=== PATIENT | male | born 1965 | race African-American/Black ===

== ENCOUNTER 2016-11-26 23:12 | Emergency (ER) | payer MEDICAID, OTHER ==
[~2016-11-26] VITALS: Ht 177.8 cm; Wt 102.1 kg
[2016-11-26] MEDS ORDERED: NKM (23:26)
[2016-11-26] MEDS ORDERED: Lidocaine 2% Visc 15ml soln ORAL ONE (23:45)
[2016-11-26] MEDS ORDERED: Mylanta II UD 30ml ORAL ONE (23:45)
--- NOTE | 2016-11-26 23:45 | Emergency Room Report ---
History of Present Illness General Chief Complaint: Nausea Source: Patient Present Illness HPI The patient ate some grass yogurt on Sunday. he and his started feeling nausea epigastric and chest pain is burning. He also feels aches his body. He denies any fevers. There is no change in the bowels at this time. No dysuria, [place]. Some muscle aching. No dizziness. Allergies: Coded Allergies: No Known Allergies (Unverified , 11/26/16) Patient History Past Medical History: see triage record Social History: Denies: alcohol use, drug use, smoking Social History Narrative Reviewed Nursing Documentation: PMH: Agreed, PSxH: Agreed Nursing Documentation-PMH Past Medical History: No Stated History Review of Systems All Other Systems: negative except mentioned in HPI Physical Exam Vital Signs Date Time Temp Pulse Resp B/P Pulse Ox O2 Delivery O2 Flow Rate FiO2 11/26/16 23:20 98.2 63 16 140/89 96 Room Air Sp02 EP Interpretation: reviewed, normal General Appearance: well appearing, no apparent distress Head: normocephalic, atraumatic Eyes: bilateral eye PERRL, bilateral eye normal inspection ENT: hearing grossly normal, normal voice, moist mucus membranes Neck: full range of motion, supple Respiratory: no respiratory distress, speaking full sentences Gastrointestinal: normal inspection, soft, no mass, no guarding, no rebound, tenderness - epigastric Musculoskeletal: digits/nails normal, gait/station normal, normal range of motion Neurologic: alert, normal gait, grossly normal Psychiatric: mood/affect normal Skin: no rash Medical Decision Making Diagnostic Impression: Primary Impression: Nausea and vomiting in adult patient Additional Impression: Epigastric pain ER Course Patient with epigastric pain, NV post unusual ingestion. Ddx: gastritis, gastroenteritis, food poisoning, viral syndrome, pancreatitis, gall bladder problems amongst others. Clinically, not toxic and NAD. Will treat symptomatically. If not improved, consider labs and IV. Patient refused tylenol and ranitidine. Pain resolved. Patient stable for outpatient observation and treatment. Last Vital Signs Date Time Temp Pulse Resp B/P Pulse Ox O2 Delivery O2 Flow Rate FiO2 11/27/16 00:49 98.2 72 16 134/87 98 Room Air Status: improved Disposition: HOME, SELF-CARE Condition: Improved Scripts Mag Hydrox/Al Hydrox/Simeth (MAALOX MAXIMUM STRENGTH SUSP) 355 Ml Oral.susp 30 ML PO Q6HR Y for stomach pain, #240 ML Prov: Douglas Turner M.D. 11/27/16 Lidocaine HCl (Lidocaine HCl Viscous) 100 Ml Solution 10 ML MM Q6HR, #60 MG Prov: Douglas Turner M.D. 11/27/16 Ondansetron Odt* (ZOFRAN ODT*) 4 Mg Tab.rapdis 4 MG ORAL Q6H Y for Nausea & Vomiting, #6 TAB 0 Refills Prov: Douglas Turner M.D. 11/27/16 Famotidine (PEPCID) 20 Mg Tablet 20 MG ORAL DAILY, #30 TAB 0 Refills Prov: Douglas Turner M.D. 11/27/16 Douglas Turner M.D. November 26, 2016 23:45
[2016-11-27] MEDS ORDERED: PEPCID20 MG ORAL (00:27)
[2016-11-27] MEDS ORDERED: LIDOCAINE20 MG/1 M1 MM (00:27)
[2016-11-27] MEDS ORDERED: ZOFRAN ODT4 MG ORAL (00:27)
[2016-11-27] MEDS ORDERED: MAALOX MAXIMUM355 M1 PO (00:27)
[2016-11-27 00:48] VITALS: BP 134/87
[2016-11-27 00:49] VITALS: BP 134/87
== END 2016-11-27 00:49 | disposition home or self-care (01) ==
LOC: EMR 23:40
DX: R11.2 Nausea with vomiting, unspecified (principal); R10.13 Epigastric pain; M79.1 Myalgia
CPT/HCPCS: 99284

== ENCOUNTER 2017-06-01 00:49 | Emergency (ER) | payer MEDICAID, OTHER ==
[~2017-06-01] VITALS: Ht 177.8 cm; Wt 99.8 kg
[~2017-06-01 00:49] MED LIST: LIDOCAINE20 MG/1 M1 MM; MAALOX MAXIMUM355 M1 PO; NKM; PEPCID20 MG ORAL; ZOFRAN ODT4 MG ORAL
[2017-06-01 01:20] VITALS: BP 141/78
[2017-06-01] MEDS ORDERED: Ketorolac 30mg Inj IV ONE (01:30)
[2017-06-01] MEDS ORDERED: Aspirin Baby 81mg ORAL ONE (01:30)
--- NOTE | 2017-06-01 01:44 | Emergency Room Report ---
History of Present Illness General Chief Complaint: Chest Pain Source: Patient Present Illness HPI This 51-year-old male with no past medical history. He presents to complaint of chest pain. His been ongoing constant for last 2 days. The left side. Sharp in nature. [place] pinching. No radiation. No nausea no vomiting. No diarrhea. He had similar symptom in the past and had a stress test about 7 months ago it was negative. Denies any other complaint. Complaining of pain a 01/29 Allergies: Coded Allergies: No Known Allergies (Unverified , 11/26/16) Patient History Past Medical History: see triage record, old chart reviewed Past Surgical History: none Pertinent Family History: none Social History: Denies: smoking Immunizations: other Reviewed Nursing Documentation: PMH: Agreed, PSxH: Agreed Nursing Documentation-PMH Past Medical History: No Stated History Review of Systems Eye: Denies: eye pain, blurred vision ENT: Denies: ear pain, nose congestion, throat swelling Respiratory: Denies: cough, shortness of breath Cardiovascular: Reports: chest pain, Denies: palpitations Gastrointestinal: Denies: abdominal pain, diarrhea, nausea, vomiting Musculoskeletal: Denies: back pain, joint pain Skin: Denies: rash Neurological: Denies: headache, numbness Endocrine: Denies: increased thirst, increased urine Hematologic/Lymphatic: Denies: easy bruising All Other Systems: negative except mentioned in HPI Physical Exam Vital Signs Date Time Temp Pulse Resp B/P (MAP) Pulse Ox O2 Delivery O2 Flow Rate FiO2 06/01/17 01:01 98.1 67 14 145/89 98 Room Air vitals normal Sp02 EP Interpretation: reviewed, normal General Appearance: well appearing, no apparent distress, alert Head: normocephalic, atraumatic Eyes: bilateral eye PERRL, bilateral eye EOMI ENT: hearing grossly normal, normal pharynx Neck: full range of motion, supple, no meningismus Respiratory: chest non-tender, lungs clear, normal breath sounds Cardiovascular #1: regular rate, rhythm, no murmur Gastrointestinal: normal bowel sounds, non tender, no mass, no organomegaly, no bruit, non-distended Musculoskeletal: back normal, gait/station normal, normal range of motion Psychiatric: mood/affect normal Skin: warm/dry Medical Decision Making Diagnostic Impression: Primary Impression: Chest pain Qualified Codes: R07.9 - Chest pain, unspecified ER Course Patient present with chest pain. No evidence of ACS, PE, dissection to name a few. EKG is normal. Troponin negative after 36-48 hours and pain. patient also had a recent stress test way walk a treadmill. He said this was done about 6-7 months ago. Patient said last she had a CT scan and it showed he has a 1 cm pulmonary nodule. I see no need for repeat CT scan at this moment in time. This can be done as an outpatient. I see no evidence of PE in this patient. Lab Results Impression labs normal EKG Diagnostic Results Rate: normal Rhythm: NSR ST Segments: no acute changes ASA given to the pt in ED: Yes - Offered but patient refused Rhythm Strip Diag. Results Rhythm Strip Time: 01:43 EP Interpretation: yes Rate: 65 Rhythm: NSR, no PVC's, no ectopy Chest X-Ray Diagnostic Results Chest X-Ray Diagnostic Results : Chest X-Ray Ordered: Yes # of Views/Limited/Complete: 1 View Indication: Chest Pain EP Interpretation: Yes Interpretation: no consolidation, no effusion, no pneumothorax, no acute cardiopulmonary disease Impression: No acute disease Electronically Signed by: Electronically signed by Durga Ozuna MD Last Vital Signs Date Time Temp Pulse Resp B/P (MAP) Pulse Ox O2 Delivery O2 Flow Rate FiO2 06/01/17 01:01 98.1 67 14 145/89 98 Room Air Status: improved Disposition: HOME, SELF-CARE Condition: Stable Scripts Ibuprofen* (MOTRIN*) 600 Mg Tablet 600 MG ORAL THREE TIMES A DAY, #30 TAB 0 Refills Prov: DURGA OZUNA M.D. 06/01/17 Patient Instructions: Nonspecific Chest Pain Additional Instructions: Followup with your DrNando in 7 days. You may benefit from a referral to see a material handling supervisor. Return if symptom worsen. your pulmonary nodule can be worked up as an outpatient. DURGA OZUNA M.D. Jun 01, 2017 01:44
[2017-06-01 02:08] LABS: BASOPHILS % (AUTO) 1.6 % (0.0-2.0); EOSINOPHILS % (AUTO) 3.4 % (0.0-3.0); HEMATOCRIT 44.6 % (42.0-52.0); HEMOGLOBIN 14.2 G/DL (14.2-18.0); MEAN CORPUSCULAR VOLUME 91 FL (80-99); MONOCYTES % (AUTO) 8.3 % (1.0-10.0); NEUTROPHILS % (AUTO) 54.8 % (45.0-75.0); PLATELET COUNT 185 K/UL (150-450); RED BLOOD COUNT 4.89 M/UL (4.70-6.10); RED CELL DISTRIBUTION WIDTH 12.2 % (11.6-14.8); WHITE BLOOD COUNT 5.7 K/UL (4.8-10.8)
[2017-06-01 02:16] LABS: ANION GAP 7 mmol/L (5-15); BLOOD UREA NITROGEN 14 mg/dL (7-18); CALCIUM 9.6 MG/DL (8.5-10.1); CARBON DIOXIDE 28 MMOL/L (21-32); CHLORIDE 103 MMOL/L (98-107); CREATININE 0.8 MG/DL (0.55-1.30); POTASSIUM 3.6 MMOL/L (3.5-5.1); SODIUM 138 MMOL/L (136-145)
[2017-06-01 02:17] LABS: APPEARANCE,URINE CLEAR; BILIRUBIN, URINE NEGATIVE (NEGATIVE); COLOR,URINE PALE YELLOW; GLUCOSE, URINE (UA) NEGATIVE (NEGATIVE); KETONES,URINE NEGATIVE (NEGATIVE); LEUKOCYTE ESTERASE ,URINE NEGATIVE (NEGATIVE); NITRITE,URINE NEGATIVE (NEGATIVE); PH,URINE 5 (4.5-8.0); PROTEIN,URINE NEGATIVE (NEGATIVE); UROBILINOGEN,URINE NORMAL MG/DL (0.0-1.0)
[2017-06-01 02:31] LABS: ALANINE AMINOTRANSFERASE 26 U/L (12-78); ALBUMIN 3.9 G/DL (3.4-5.0); ALBUMIN/GLOBULIN RATIO 1.1 (1.0-2.7); ALKALINE PHOSPHATASE 69 U/L (46-116); ASPARTATE AMINO TRANSFERASE 20 U/L (15-37); BILIRUBIN,TOTAL 0.3 MG/DL (0.2-1.0); CKMB 1.4 NG/ML (0.0-3.6); CREATINE KINASE 119 U/L (26-308)
[2017-06-01] MEDS ORDERED: IBUPROFEN600 MG ORAL (02:52)
[2017-06-01 02:55] VITALS: BP 126/73
[2017-06-01 03:00] VITALS: BP 126/73
--- NOTE | 2017-06-01 10:46 | Diagnostic Imaging Report ---
Indication: Dyspnea Comparison: None A single view chest radiograph was obtained. Findings: Cardiomediastinal appearance is within normal limits for age. Pulmonary vascularity is appropriate. The diaphragmatic contour is smooth and costophrenic angles are sharp. No pleural effusions are identified. The bones are unremarkable. Impression: No acute findings
--- NOTE | 2017-06-10 16:15 | Cardiology Report ---
APPROVED REPORT EKG Measurement Heart [id number] [place] 184P41 [id number] Normal sinus rhythm Minimal voltage criteria for LVH, may be normal variant Borderline ECG
--- NOTE | 2017-06-10 16:15 | Cardiology Report ---
APPROVED REPORT EKG Measurement Heart [id number] [place] [id number] Normal sinus rhythm Minimal voltage criteria for LVH, may be normal variant Borderline ECG
--- NOTE | 2017-06-10 16:15 | Cardiology Report ---
APPROVED REPORT EKG Measurement Heart [id number] [place] 184P41 [id number] Normal sinus rhythm Minimal voltage criteria for LVH, may be normal variant Borderline ECG
== END 2017-06-01 03:00 | disposition home or self-care (01) ==
LOC: EMR 01:25
DX: R07.89 Other chest pain (principal)
CPT/HCPCS: 36415; 71010; 80053; 80307; 81003; 82550; 82553; 84484; 85025; 93005; 99283

== ENCOUNTER 2020-07-05 15:01 | Emergency (ER) | payer MEDICAID ==
[~2020-07-05] VITALS: Ht 177.8 cm; Wt 99.8 kg
[~2020-07-05 15:01] MED LIST changes: +IBUPROFEN600 MG ORAL
[2020-07-05 15:05] VITALS: BP 126/81
--- NOTE | 2020-07-05 15:25 | NUR ---
ED Nurse Note: pt. aaox4. ambulatory. pt. walked in to ed c/o fever and headache onset 4 days ago. 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 pt. has no acute distress noted at this time
--- NOTE | 2020-07-05 15:56 | Emergency Room Report ---
History of Present Illness General Chief Complaint: Fever Source: Patient Present Illness HPI 54-year-old male with no significant past medical history here complaining of 4 days of headache and feeling feverish. Denies any cough and congestion, shortness of breath, chest pain, diarrhea, loss of taste and smell. Has been taking Tylenol for symptom relief. Reports that about a week ago he did have some cough and congestion however resolved with Robitussin. Denies tobacco smoke, marijuana use, drug use. Vital signs within normal limits. Allergies: Coded Allergies: No Known Allergies (Unverified , 11/26/16) COVID-19 Screening Contact w/high risk pt: No Experienced COVID-19 symptoms?: Yes COVID-19 Testing performed IN SERVICE EDUCATOR: No Patient History Past Medical History: see triage record Past Surgical History: none Pertinent Family History: none Immunizations: UTD Reviewed Nursing Documentation: PMH: Agreed; PSxH: Agreed Nursing Documentation-PMH Past Medical History: No Stated History Review of Systems All Other Systems: negative except mentioned in HPI Physical Exam Vital Signs Date Time Temp Pulse Resp B/P (MAP) Pulse Ox O2 Delivery O2 Flow Rate FiO2 07/05/20 15:05 99.1 82 16 126/81 (96) 98 Room Air Sp02 EP Interpretation: reviewed, normal General Appearance: no apparent distress, alert, GCS 15, non-toxic Head: normocephalic, atraumatic Eyes: bilateral eye normal inspection, bilateral eye PERRL ENT: hearing grossly normal, normal pharynx, no angioedema, normal voice Neck: full range of motion, supple/symm/no masses Respiratory: chest non-tender, lungs clear, normal breath sounds, no rhonchi, no respiratory distress, no retraction, no accessory muscle use, speaking full sentences Cardiovascular #1: regular rate, rhythm, no edema Gastrointestinal: normal bowel sounds, non tender, soft, non-distended, no guarding, no rebound Genitourinary: no CVA tenderness Musculoskeletal: back normal Neurologic: alert, motor strength/tone normal, oriented x3, sensory intact, responsive, speech normal Psychiatric: judgement/insight normal, memory normal, mood/affect normal, no suicidal/homicidal ideation Skin: no rash Lymphatic: no adenopathy Medical Decision Making PA Attestation All my diagnosis and treatment plans were reviewed ad discussed with my supervising physician Dr. Tomlinson Diagnostic Impression: Primary Impression: Suspected 2019 novel coronavirus infection ER Course 54-year-old male with no significant past medical history here complaining of 4 days of headache and feeling feverish. Denies any cough and congestion, shortness of breath, chest pain, diarrhea, loss of taste and smell. Has been taking Tylenol for symptom relief. Reports that about a week ago he did have some cough and congestion however resolved with Robitussin. Denies tobacco smoke, marijuana use, drug use. Vital signs within normal limits. Ddx considered but are not limited to: bronchitis, PNA, URI viral, bacterial bronchitis, coronavirus Vital signs: are WNL, pt. is afebrile H&PE are most consistent with: Suspected COVID-19 ORDERS: Chest x-ray, azithromycin, prednisone ED INTERVENTIONS: None required at this time. DISCHARGE: At this time pt. is stable for d/c to home. Will provide printed patient care instructions, and any necessary prescriptions. Care plan and follow up instructions have been discussed with the patient prior to discharge. Take medication as directed, follow primary care provider, if worsening symptoms return to the emergency room Chest X-Ray Diagnostic Results Chest X-Ray Diagnostic Results : Chest X-Ray Ordered: Yes # of Views/Limited/Complete: 1 View Indication: Shortness of Breath EP Interpretation: Yes NANCY Xray: Interpretation reviewed, by supervising MD, and agrees with findings. Interpretation: no consolidation, no effusion, no pneumothorax Impression: No acute disease Electronically Signed by: Milly Rivas PA-C Last Vital Signs Date Time Temp Pulse Resp B/P (MAP) Pulse Ox O2 Delivery O2 Flow Rate FiO2 07/05/20 15:05 99.1 82 16 126/81 98 Room Air Disposition: HOME, SELF-CARE Condition: Stable Scripts Prednisone* (PREDNISONE*) 20 Mg Tablet 40 MG ORAL DAILY for 5 Days, #10 TAB Prov: Milly Hutchinson 07/05/20 Azithromycin* (ZITHROMAX*) 250 Mg Tablet 250 MG ORAL DAILY, #6 TAB 0 Refills Take two tables once daily for 1 day, then one tablet once daily for 4 days. Prov: Milly Hutchinson 07/05/20 Referrals: [facility],REFERRING (PCP) Patient Instructions: Fever, Adult, Upper Respiratory Infection, Adult, [id number] Additional Instructions: Take medication as directed, follow primary care provider, I suggested that tested for Covid, self quarantine, if worsening symptoms return to the emergency room Milly Hutchinson Jul 05, 2020 15:56
[2020-07-05] MEDS ORDERED: ZITHROMAX250 MG ORAL (16:00)
[2020-07-05] MEDS ORDERED: PREDNISONE20 MG ORAL (16:00)
[2020-07-05 16:05] VITALS: BP 124/78
--- NOTE | 2020-07-05 16:05 | NUR ---
ER DISCHARGE NOTE: Patient is cleared to be discharged per ERMD, pt is aox4, on room air, with stable vital signs. pt was given dc and prescription instructions, pt was able to verbalize understanding, pt id band removed without complications. pt is able to ambulate with steady gait. pt took all belongings.
--- NOTE | 2020-07-05 16:28 | Diagnostic Imaging Report ---
Indication: Shortness of breath Technique: One view of the chest Comparison: 06/01/2017 Findings: Lungs and pleural spaces are clear. Heart size is normal. No significant change Impression: No acute process
== END 2020-07-05 16:05 | disposition home or self-care (01) ==
LOC: EMR 15:30
DX: Z20.828 Contact with and (suspected) exposure to other viral communicable diseases (principal); R51.9 Headache, unspecified; R50.9 Fever, unspecified
CPT/HCPCS: 71045; Z7502; 99283